=== PATIENT | female | born 1960 | race Caucasian/White ===

== ENCOUNTER 2019-08-01 13:47 | Outpatient (CLI) | payer OTHER, SELFPAY ==
--- NOTE | 2019-08-01 13:56 | XR_ITS ---
WS: [id number] CHEST 2 VIEWS HISTORY: LT CHEST PAIN COMPARISON: 11/01/2018 Lungs: Hyperinflated lungs. No pneumonia or nodules. Normal vasculature. Cardiac size: Normal. Mediastinum/Aorta: Normal mediastinum. Bones: Normal. XR/XR chest 2V* [id number] IMPRESSION: Chronic emphysema. No pneumonia.
== END 2019-08-01 13:48 | disposition home or self-care (01) ==
LOC: RAD 13:53
PROVIDERS: Family Provider Nurse Practitioner Family; PCP Nurse Practitioner Family; Visit Provider Nurse Practitioner Family
DX: R07.9 Chest pain, unspecified (principal); R07.81 Pleurodynia; J43.9 Emphysema, unspecified
CPT/HCPCS: 71046

== ENCOUNTER 2020-10-23 10:06 | Outpatient (CLI) | payer OTHER, SELFPAY ==
--- NOTE | 2020-10-23 10:19 | XR_ITS ---
WS: [id number] Cervical spine, 3 views, 10/23/2020 Clinical Data: NECK PAIN/RA Comparison: None. Findings: No compression fractures are seen. There is degenerative disc narrowing at C5-C6. There is osteoarthritis at C4-C5 and C5-C6. There is no prevertebral soft tissue swelling. The odontoid is unr emarkable. The soft tissues of the neck and the lung apices are normal. XR/XR cervical spine 3V* [id number] Impression: 1. Degenerative disc narrowing at C5-C6. 2. Osteoarthritis at C4-C5 and C5-C6.
== END 2020-10-23 10:07 | disposition home or self-care (01) ==
PROVIDERS: PCP Nurse Practitioner Family; Visit Provider Nurse Practitioner Family
DX: M54.2 Cervicalgia (principal); M47.812 Spondylosis without myelopathy or radiculopathy, cervical region
CPT/HCPCS: 72040

== ENCOUNTER 2020-11-28 16:06 | Outpatient (CLI) | payer OTHER, SELFPAY ==
--- NOTE | 2020-11-28 | CTR_ITS ---
PROCEDURE INFORMATION: Exam: CT Abdomen And Pelvis Without Contrast Exam date and time: 11/28/2020 12:00 AM Age: 60 years old Clinical indication: Abdominal pain; Flank; Other: Bilateral; Prior surgery; Surgery type: Gb, tubal, ovary; Additional info: Hematuria, dysuria, flank pain x 2 days TECHNIQUE: Imaging protocol: Computed tomography of the abdomen and pelvis without contrast. COMPARISON: CR Hip 2-3v RIGHT wwo Pelv* [id number] 01/27/2018 9:09 AM RADIATION DOSE METRICS: Total DLP (mGy-cm): 1506.87 FINDINGS: Liver: Normal. No mass. Gallbladder and bile ducts: Cholecystectomy. Nondilated biliary system. Pancreas: Normal. No ductal dilation. Spleen: Normal. No splenomegaly. Adrenal glands: Normal. No mass. Kidneys and ureters: Mild cortical atrophy of both kidneys. Negative for hydronephrosis. No perinephric inflammation. No calcified renal stones. Left renal sinus calcifications are suspected represent vascular origin calcification. Stomach and bowel: Unremarkable. No obstruction. No mucosal thickening. Appendix: No evidence of appendicitis. Intraperitoneal space: Unremarkable. No free air. No significant fluid collection. Vasculature: Diffuse atherosclerosis. Negative for abdominal aortic aneurysm. Lymph nodes: Unremarkable. No enlarged lymph nodes. Urinary bladder: Bladder is decompressed with no focal stones or obvious mass. Reproductive: Unremarkable as visualized. Bones/joints: Mild superior endplate wedge compression deformity of T11. Unremarkable alignment. Soft tissues: Unremarkable. CT/CT kidney stone [id number] IMPRESSION: 1. Negative for acute abdominopelvic pathology. 2. No cause of hematuria identified. Radiation Dose CTDIVOL = (mGy): DLP = 1506.87 (mGy-cm)
== END 2020-11-28 16:07 | disposition home or self-care (01) ==
LOC: RAD 16:08
PROVIDERS: PCP Nurse Practitioner Family; Visit Provider Nurse Practitioner Family
DX: R31.9 Hematuria, unspecified (principal); R30.0 Dysuria; R10.9 Unspecified abdominal pain
CPT/HCPCS: 74176

== ENCOUNTER → 2020-12-03 13:41 | Outpatient (BNVA) | payer OTHER, SELFPAY | PROVIDERS: PCP Nurse Practitioner Family; Visit Provider Internal Medicine | DX: M05.711 Rheumatoid arthritis with rheumatoid factor of right shoulder without organ or systems involvement (principal); M05.712 Rheumatoid arthritis with rheumatoid factor of left shoulder without organ or systems involvement; M54.2 Cervicalgia; Z11.59 Encounter for screening for other viral diseases; Z11.1 Encounter for screening for respiratory tuberculosis; Z87.891 Personal history of nicotine dependence | CPT/HCPCS: 99203; 99204 ==

== ENCOUNTER 2020-12-03 15:17 | Outpatient (CLI) | payer OTHER, SELFPAY ==
--- NOTE | 2020-12-03 15:35 | XR_ITS ---
WS: [id number] CERVICAL SPINE FLEXION EXTENSION TECHNIQUE: 3 views of the cervical spine: lateral neutral, flexion and extension views. CLINICAL INFORMATION: M05.711 - Rheumatoid arthritis with rheumatoid factor of ... COMPARISON: None. FINDINGS: Straightening of the normal cervical lordosis. Disc space narrowing worse at C5-6 with osteophytic ri dging. Slight anterolisthesis C4-5 in the neutral position measuring 2 mm. This increases slightly on flexion to 2.2 mm and decreases on extension to 1 mm. Normal C1-2 articulation. Posterior elements are normal. No other significant findings. XR/XR cervical spine fl/ex [id number] IMPRESSION: 1. Minimal instability C4-5 described above. 2. Mild spondylitic changes with straightening of the normal cervical lordosis . 3. Disc space narrowing worse at C5-6 with osteophytic ridging.
--- NOTE | 2020-12-03 15:35 | XR_ITS ---
WS: [id number] HIP WITH PELVIS RIGHT TECHNIQUE: 3 views of the right hip with pelvis CLINICAL INFORMATION: M05.711 - Rheumatoid arthritis with rheumatoid factor of ... COMPARISON: None. FINDINGS: Mild degenerative arthritis right hip with mild joint space narrowing. No acute fractures. Normal vis ualized right pubic rami. No erosive changes. XR/XR hip RT 2-3V wo/w pel* [id number] IMPRESSION: Mild degenerative arthritis right hip. No acute fractures. Tonnis classification: grade 1: sclerosis of femoral head and acetabulum or sli ght joint space narrowing or slight lippig at joint margins
--- NOTE | 2020-12-03 15:35 | XR_ITS ---
WS: [id number] THORACIC SPINE TECHNIQUE: 3 views of the thoracic spine CLINICAL INFORMATION: M05.711 - Rheumatoid arthritis with rheumatoid factor of ... COMPARISON: None. FINDINGS: Osteopenia. Mild thoracic curve. Mild thoracic kyphosis. Mild compression deformity in the lower thor acic spine at T11 unchanged since the recent CT November 29, 2019 Mild compression superior endplate. Cholecystectomy clips. Slight anterolisthesis C4-5. Disc space na rrowing worse at C5-6. Partially visualized lungs appear well aerated. Minimal disc space narrowing i n the thoracic spine. XR/XR thoracic spine 3V* [id number] IMPRESSION: 1. Mild thoracic curve. Mild thoracic kyphosis. 2. Mild compression with anterior wedging T11 vertebral body unchanged since r ecent CT. 3. Slight anterolisthesis C4-5. Disc space narrowing worse at C5-6
== END 2020-12-03 15:18 | disposition home or self-care (01) ==
PROVIDERS: PCP Nurse Practitioner Family; Visit Provider Internal Medicine
DX: M05.711 Rheumatoid arthritis with rheumatoid factor of right shoulder without organ or systems involvement (principal); M05.712 Rheumatoid arthritis with rheumatoid factor of left shoulder without organ or systems involvement
CPT/HCPCS: 72040; 72072; 73502

== ENCOUNTER → 2021-03-05 13:56 | Outpatient (BNVA) | payer OTHER, SELFPAY | PROVIDERS: PCP Nurse Practitioner Family; Visit Provider Internal Medicine | DX: M05.711 Rheumatoid arthritis with rheumatoid factor of right shoulder without organ or systems involvement (principal); M05.712 Rheumatoid arthritis with rheumatoid factor of left shoulder without organ or systems involvement; M54.2 Cervicalgia; F17.210 Nicotine dependence, cigarettes, uncomplicated | CPT/HCPCS: 99214 ==

== ENCOUNTER → 2021-03-27 13:40 | Outpatient (BNVA) | payer OTHER, SELFPAY | PROVIDERS: PCP Nurse Practitioner Family; Visit Provider Anesthesiology Pain Medicine | DX: G89.29 Other chronic pain (principal); M79.18 Myalgia, other site; M54.6 Pain in thoracic spine; M54.12 Radiculopathy, cervical region; F17.210 Nicotine dependence, cigarettes, uncomplicated | CPT/HCPCS: 20553; 99204; J1030; J3490 ==

== ENCOUNTER 2021-06-02 14:28 | Outpatient (CLI) | payer OTHER, BC, MEDICAID, SELFPAY ==
[2021-06-02 15:13] LABS: Basophils % 0.6 %; Eosinophils # 0.1 10^3/uL (0.0-0.8); Eosinophils % 1.7 %; Hematocrit 40.1 % (37.0-47.0); Hemoglobin 12.5 g/dL (11.5-15.3); Lymphocytes % 15.1 %; Mean Corpuscular HGB Conc 31.2 g/dL (30.0-36.0); Mean Corpuscular Hemoglobin 33.7 pg (28.0-34.0); Mean Corpuscular Volume 108.1 fl (81-99); Monocytes # 0.5 10^3/uL (0.2-0.9); Monocytes % 6.9 %; Neutrophils # 4.92 10^3/uL (1.8-7.7); Neutrophils % 75.1 %; Nucleated Red Blood Cells % 0 %; Platelet Count 152 10^3/cmm (130-400); Red Blood Count 3.71 10^6/uL (4.1-5.3); Red Cell Distribution Width 13.7 % (12.1-15.1); White Blood Count 6.6 10^3/uL (4.0-10.0)
[2021-06-02 15:17] LABS: Erythrocyte Sedimentation Rate 26 mm/hr (0-15)
[2021-06-02 15:37] LABS: Alanine Aminotransferase 16 U/L (0-33); Albumin Level 3.6 g/dL (3.5-5.2); Alkaline Phosphatase 135 IU/L (35-105); Anion Gap 14.1 (5-19); Aspartate Amino Transferase 18 U/L (0-32); Blood Urea Nitrogen 13 mg/dL (8-23); Calcium 8.3 mg/dL (8.5-10.5); Carbon Dioxide 23 mmol/L (22-29); Chloride 108 mmol/L (98-107); Globulin 3.1 g/dL (1.3-4.6); Glomerular Filtration Rate 50.3 mL/min (90-130); Glucose 109 mg/dL (65-115); Osmolality Calculated 293 mOsm/kg (285-295); Potassium 4.1 mmol/L (3.5-5.1); Sodium 141 mmol/L (136-145); Total Bilirubin 0.2 mg/dL (0.15-1.2); Total Protein 6.7 g/dL (6.6-8.7)
== END 2021-06-02 14:29 | disposition home or self-care (01) ==
LOC: LAB 14:38
PROVIDERS: PCP Nurse Practitioner Family; Visit Provider Internal Medicine
DX: M54.2 Cervicalgia (principal)
CPT/HCPCS: 80053; 85025; 85651; 86140

== ENCOUNTER → 2022-11-23 10:12 | Outpatient (BNVA) | payer OTHER, BC, MEDICAID, SELFPAY | PROVIDERS: PCP Nurse Practitioner Family; Referring Provider Dermatology; Visit Provider Specialist | DX: M19.012 Primary osteoarthritis, left shoulder; M25.812 Other specified joint disorders, left shoulder | CPT/HCPCS: 73030 ==

== ENCOUNTER 2022-12-18 06:00 | Outpatient (RCR) | payer OTHER, BC, MEDICAID, SELFPAY | END 2023-01-16 23:59 | disposition home or self-care (01) | LOC: TPT 06:00 | PROVIDERS: Visit Provider Specialist | DX: M75.02 Adhesive capsulitis of left shoulder (principal) | CPT/HCPCS: 97110; 97140; 97162 ==

== ENCOUNTER 2023-01-17 06:00 | Outpatient (RCR) | payer OTHER, BC, MEDICAID, SELFPAY | END 2023-02-16 23:59 | disposition home or self-care (01) | LOC: TPT 06:00 | PROVIDERS: Visit Provider Specialist | DX: M75.02 Adhesive capsulitis of left shoulder (principal) | CPT/HCPCS: 97110; 97140 ==

== ENCOUNTER 2023-02-13 11:01 | Emergency (ER) | payer OTHER, BC, MEDICAID, SELFPAY ==
[2023-02-13 11:14] VITALS: BP 187/87; PULSE 60; RESP 18; TEMP 36.6; O2SAT 98; BMI 30.7
--- NOTE | 2023-02-13 11:27 | CTR_ITS ---
PROCEDURE INFORMATION: Exam: CT Abdomen And Pelvis With Contrast Exam date and time: 02/13/2023 12:39 PM Age: 62 years old Clinical indication: Abdominal pain; Localized; Left upper quadrant (luq); Prior surgery; Surgery date: 6+ months; Surgery type: Gb; Patient HX: Lifting on something heard a pop pain on left side from mid back around to upper abd; Additional info: Abdominal pain, luq TECHNIQUE: Imaging protocol: Computed tomography of the abdomen and pelvis with contrast. Radiation optimization: All CT scans at this facility use at least one of these dose optimization techniques: automated exposure control; mA and/or kV adjustment per patient size (includes targeted exams where dose is matched to clinical indication); or iterative reconstruction. Contrast material: OMNI 350; Contrast volume: 100 ml; Contrast route: INTRAVENOUS (IV); REPORTING DATA: Count of CT and Cardiac NM exams in prior 12 months: This patient has received 0 known CTs and 0 known cardiac nuclear medicine studies in the 12 months prior to the current study. COMPARISON: CT kidney stone [id number] 11/28/2020 4:31 PM RADIATION DOSE METRICS: Total DLP (mGy-cm): 813.53 FINDINGS: Lungs: Lung bases are clear. Liver: The liver is normal. Gallbladder and bile ducts: The gallbladder is absent. There is ectasia of the common bile duct and central intrahepatic ducts. Pancreas: There is mild atrophy of the pancreas. Spleen: The spleen is unremarkable. Adrenal glands: The adrenal glands are unremarkable. Kidneys and ureters: The kidneys are unremarkable. No hydronephrosis or stones. No ureteral dilation. Stomach and bowel: The stomach is unremarkable. The small bowel is nondilated. The colon is unremarkable. Appendix: The appendix is normal. Intraperitoneal space: There is no free air or significant intraperitoneal free fluid. Vasculature: There is moderate aortic atherosclerotic disease. The portal, splenic and superior mesenteric veins are patent. Lymph nodes: There is no lymphadenopathy in the retroperitoneum, mesentery, pelvis or inguinal regions. Urinary bladder: The urinary bladder is unremarkable. Reproductive: The uterus is unremarkable. There is no adnexal mass or large cyst. Bones/joints: Mild chronic T11 superior endplate compression fracture is stable since 11/28/2020. Lumbar spine is unremarkable. The pelvis and hips are unremarkable. Soft tissues: The abdominal wall is intact. CT/CT abdomen pelvis w con* [id number] IMPRESSION: 1. No acute findings. 2. Incidental findings above.
[2023-02-13 11:45] VITALS: RESP 18
[2023-02-13] MEDS: HYDROmorphone 1 mg/mL INJ 1 mL IVP (11:45)
[2023-02-13] MEDS: ondansetron 2 mg/ML SDV 2 mL 4 MG IVP (11:46)
--- NOTE | 2023-02-13 11:46 | W.ED.ABDPA2 ---
HPI - Abdominal Pain General: Chief Complaint: Abdominal Pain Stated Complaint: left upper abd pain Time Seen by Provider: 02/13/23 11:03 History of Present Illness: This patient is a 62-year-old white female who presents to the emergency department with left upper quadrant abdominal pain. Patient states she was lifting something heavy Wednesday night and felt a sudden pop in the left upper quadrant of the abdomen. She has developed swelling and severe pain in the area. She has had some nausea but no vomiting. She states she has not had a bowel movement since this happened on Wednesday. Urination has been normal. She has not had a fever. Patient has a history of coronary artery disease, hypertension and hypercholesterolemia. Past surgical history includes a bilateral salpingo oophorectomy, cholecystectomy and carpal tunnel surgery. Review of Systems General: Reports: 10 or more systems reviewed and unremarkable except in HPI and below PFSH ED PFSH: Medical History ASHD (arteriosclerotic heart disease) Hyperlipidemia Hypertension Rheumatoid arthritis Surgical History H/O bilateral salpingo-oophorectomy History of carpal tunnel surgery History of cholecystectomy Family History Other CAD (coronary artery disease) Cancer Diabetes Family history of premature coronary artery disease Lung disease Stroke Denies family history of Clotting disorder Dementia Chronic kidney disease (CKD) Suicide Anesthesia complication Bleeding disorder Social History Smoking and tobacco/nicotine status: current some day tobacco/nicotine user cigarettes Alcohol intake: never Substance/Drug Use: never Physical Exam Const: COMMON NORMALS: patient oriented x3 and no limitations GENERAL APPEARANCE: cooperative HENMT: COMMON NORMALS: normocephalic, atraumatic, moist oral mucous membranes and oropharynx normal HEAD & SCALP: normal to inspection, normocephalic and atraumatic Eye: COMMON NORMALS: Equal, round and reactive pupils present, EOMs intact bilaterally and conjunctivae normal GENERAL EYE: appearance normal, both eyes and all related structures CONJUNCTIVA: Yes conjunctivae normal PUPIL: Yes Equal, round and reactive pupils present Neck/C-Spine: COMMON NORMALS: supple and no JVD Chest: COMMONS NORMALS: normal inspection of the chest Resp: COMMON NORMALS: normal respiratory effort and clear to auscultation bilaterally AUSCULTATION: clear to auscultation bilaterally Cardio: COMMON NORMALS: no JVD, regular rate, regular rhythm, No gallops present (Cardio), No murmurs present (Cardio) and No rub (Cardio) RATE: regular rate RHYTHM: regular rhythm GI: COMMON NORMALS: Soft to palpation AUSCULTATION: Yes normoactive bowel sounds PALPATION: Yes Soft to palpation OTHER: Left sided abdominal pain to mild palpation especially in the left upper quadrant. : COMMON NORMALS: Yes no CVA tenderness BLADDER/KIDNEY EXAM: Yes no CVA tenderness Back/Pelvis: COMMON NORMALS: no CVA tenderness and thoracic and lumbar spine normal to inspection Extremity: COMMON NORMALS: normal to inspection Neuro: COMMON NORMALS: patient oriented x3 and CN's II-XII intact bilaterally Psych: COMMON NORMALS: mental status grossly normal, Normal thought process present and cooperative THOUGHT PROCESS: Normal thought process present Skin: COMMON NORMALS: no rashes or lesions noted, turgor normal and no jaundice GENERAL SKIN EXAM: no rashes or lesions noted and turgor normal Course Vital Signs: Vital signs: Vital Signs Temperature 97.9 F 02/13/23 11:14 Pulse Rate 60 02/13/23 11:14 Respiratory Rate 18 02/13/23 11:45 Blood Pressure 187/87 02/13/23 11:14 Pulse Oximetry 98 02/13/23 11:14 Oxygen Delivery Me thod Room Air 02/13/23 11:14 MDM - Abdominal Pain Medical Decision Making Patient was given 1 mg of Dilaudid IV, 4 mg of Zofran IV, 10 mg of Compazine IV. She is feeling significantly better. CBC, CMP and lipase were normal. CT scan of the abdomen and pelvis was read by the radiologist as normal. Patient appears to have an abdominal wall strain. I did place her on ibuprofen, baclofen, hydrocodone and Compazine. I recommended she follow-up with her primary care physician next week for recheck. She was discharged in stable condition. Lab Data 02/13/23 11:43 02/13/23 11:43 Labs/Radiology: Radiology Impressions Abdomen/Pelvis CT 02/13/23 11:27 IMPRESSION: 1. No acute findings. 2. Incidental findings above. Laboratory Results WBC 8.75 10^3/uL (3.29-11.43) 02/13/23 11:43 RBC 4.09 10^6/uL (3.85-5.65) 02/13/23 11:43 Hgb 13.30 g/dL (11.27-16.99) 02/13/23 11:43 Hct 42.5 % (36-47) 02/13/23 11:43 MCV 103.9 fl (85-98) H 02/13/23 11:43 MCH 32.5 pg (27-33) 02/13/23 11:43 MCHC 31.3 g/dL (30-55) 02/13/23 11:43 RDW 14.0 % (12.1-15.1) 02/13/23 11:43 Plt Count 245 10^3/cmm (157-399) 02/13/23 11:43 MPV 10.5 fL (7.4-10.4) H 02/13/23 11:43 Neut % (Auto) 77.7 % 02/13/23 11:43 Lymph % (Auto) 12.7 % 02/13/23 11:43 [place] % (Auto) 6.3 % 02/13/23 11:43 Eos % (Auto) 2.1 % 02/13/23 11:43 Baso % (Auto) 0.7 % 02/13/23 11:43 Neut # (Auto) 6.81 10^3/uL (1.8-7.7) 02/13/23 11:43 Lymph # (Auto) 1.1 10^3/uL (0.8-4.8) 02/13/23 11:43 [place] # (Auto) 0.6 10^3/uL (0.2-0.9) 02/13/23 11:43 Eos # (Auto) 0.2 10^3/uL (0.0-0.8) 02/13/23 11:43 Baso # (Auto) 0.1 10^3/uL (0.0-0.1) 02/13/23 11:43 Nucleated RBC % (auto) 0 % 02/13/23 11:43 Nucleated RBCs # 0.0 /100WBC 02/13/23 11:43 Sodium 143 mmol/L (136-145) 02/13/23 11:43 Potassium 4.3 mmol/L (3.5-5.1) 02/13/23 11:43 Chloride 108 mmol/L (98-107) H 02/13/23 11:43 Carbon Dioxide 24 mmol/L (22-29) 02/13/23 11:43 Anion Gap 15.3 (5-19) 02/13/23 11:43 BUN 15 mg/dL (8-23) 02/13/23 11:43 Creatinine 1.1 mg/dL (0.5-0.9) H 02/13/23 11:43 GFR Calculation 50.2 mL/min (90-130) L 02/13/23 11:43 Glucose 111 mg/dL (65-115) 02/13/23 11:43 Calculated Osmolality 298 mOsm/kg (285-295) H 02/13/23 11:43 Calcium 9.2 mg/dL (8.5-10.5) 02/13/23 11:43 Total Bilirubin 0.4 mg/dL (0.15-1.2) 02/13/23 11:43 AST 17 U/L (0-32) 02/13/23 11:43 ALT 19 U/L (0-33) 02/13/23 11:43 Alkaline Phosphatase 141 U/L (35-105) H 02/13/23 11:43 Total Protein 7.1 g/dL (6.6-8.7) 02/13/23 11:43 Albumin 3.9 g/dL (3.5-5.2) 02/13/23 11:43 Globulin 3.2 g/dL (1.3-4.6) 02/13/23 11:43 Lipase 53 U/L (13-60) 02/13/23 11:43 All radiology interpretation(s) finalized by discharge Discharge Plan Discharge Patient Disposition: Home Clinical Impression: Abdominal wall strain Condition: Stable Prescriptions: New baclofen 5 mg tablet 5 mg PO TID PRN (Reason: muscle spasm) Qty: 30 0RF ibuprofen 800 mg tablet 800 mg PO TID Qty: 30 0RF hydrocodone-acetaminophen 5-325 mg tablet 1 tab PO Q4H Qty: 30 0RF Compazine 10 mg tablet 10 mg PO Q6H Qty: 20 0RF No Action aspirin [Adult Low Dose Aspirin] 81 mg tablet,delayed release (DR/EC) 81 mg PO DAILY calcium carbonate-vitamin D3 [Calcium 600 with Vitamin D3] 600 mg(1,500mg) -500 unit capsule PO hydroxychloroquine [Plaquenil] 200 mg tablet 200 mg PO BID prednisone 5 mg tablet 5 mg PO DAILY folic acid 1 mg tablet 2 mg PO DAILY Qty: 180 1RF methotrexate sodium 2.5 mg tablet 15 mg PO .qweek simvastatin 20 mg tablet 20 mg PO DAILY ergocalciferol (vitamin D2) [Vitamin D2] 1,250 mcg (50,000 unit) capsule 1,250 mcg PO .WEEKLY lisinopril 40 mg tablet 40 mg PO DAILY Qty: 90 3RF carvedilol 12.5 mg tablet 12.5 mg PO DIRECTED Qty: 90 3RF Rx Instructions: Take 2 tabs by mouth every morning and 1 tab by mouth every evening Discharge Orders: Discharge ED (Routine); Ordered 02/13/23 Ordered By: Archie Ruiz Referrals: Arminda Chacon APN [Primary Care Provider] - Patient Instructions: Opioid Safety, Pain Management Activity Restrictions/Additional Instructions: Follow-up with primary care physician next week for recheck. Coding Level of Care Code ED Litigation Attorney Associate for Lukasz Hernandez
[2023-02-13 11:48] LABS: Basophils # 0.1 10^3/uL (0.0-0.1); Basophils % 0.7 %; Eosinophils # 0.2 10^3/uL (0.0-0.8); Eosinophils % 2.1 %; Hematocrit 42.5 % (36-47); Lymphocytes # 1.1 10^3/uL (0.8-4.8); Lymphocytes % 12.7 %; Mean Corpuscular HGB Conc 31.3 g/dL (30-55); Mean Corpuscular Hemoglobin 32.5 pg (27-33); Mean Corpuscular Volume 103.9 fl (85-98); Mean Platelet Volume 10.5 fL (7.4-10.4); Monocytes # 0.6 10^3/uL (0.2-0.9); Monocytes % 6.3 %; Neutrophils # 6.81 10^3/uL (1.8-7.7); Neutrophils % 77.7 %; Nucleated Red Blood Cells % 0 %; Platelet Count 245 10^3/cmm (157-399); Red Blood Count 4.09 10^6/uL (3.85-5.65); White Blood Count 8.75 10^3/uL (3.29-11.43)
[2023-02-13 12:16] LABS: Alanine Aminotransferase 19 U/L (0-33); Albumin Level 3.9 g/dL (3.5-5.2); Alkaline Phosphatase 141 U/L (35-105); Anion Gap 15.3 (5-19); Aspartate Amino Transferase 17 U/L (0-32); Blood Urea Nitrogen 15 mg/dL (8-23); Calcium 9.2 mg/dL (8.5-10.5); Carbon Dioxide 24 mmol/L (22-29); Chloride 108 mmol/L (98-107); Creatinine Clr Calc Pharmacy 57.8912; Globulin 3.2 g/dL (1.3-4.6); Glomerular Filtration Rate 50.2 mL/min (90-130); Glucose 111 mg/dL (65-115); Lipase 53 U/L (13-60); Osmolality Calculated 298 mOsm/kg (285-295); Potassium 4.3 mmol/L (3.5-5.1); Sodium 143 mmol/L (136-145); Total Bilirubin 0.4 mg/dL (0.15-1.2); Total Protein 7.1 g/dL (6.6-8.7)
[2023-02-13] MEDS: iohexol 350 mg/mL 500 mL Btl (per mL) IV (12:49)
[2023-02-13 13:19] VITALS: BP 146/98; PULSE 89; RESP 18; TEMP 36.6; O2SAT 100
[2023-02-13 14:01] VITALS: BP 146/98; PULSE 89; RESP 18; TEMP 36.6; O2SAT 100
== END 2023-02-13 14:01 | disposition home or self-care (01) ==
PROVIDERS: Emergency Provider Emergency Medicine; PCP Nurse Practitioner Family
DX: S39.011A Strain of muscle, fascia and tendon of abdomen, initial encounter (principal); Z79.82 Long term (current) use of aspirin; F17.210 Nicotine dependence, cigarettes, uncomplicated; I10 Essential (primary) hypertension; E78.5 Hyperlipidemia, unspecified; X50.0XXA Overexertion from strenuous movement or load, initial encounter
CPT/HCPCS: 36415; 74177; 80053; 83690; 85025; 96374; 96375; 99285; J1170; J2405; Q9967

== ENCOUNTER 2023-02-17 06:00 | Outpatient (RCR) | payer OTHER, BC, MEDICAID, SELFPAY | END 2023-03-15 07:39 | disposition home or self-care (01) | LOC: TPT 06:00 | PROVIDERS: PCP Nurse Practitioner Family; Visit Provider Specialist | DX: M75.02 Adhesive capsulitis of left shoulder (principal) | CPT/HCPCS: 97110; 97140 ==

== ENCOUNTER 2023-04-06 09:20 | Emergency (ER) | payer OTHER, BC, MEDICAID, SELFPAY ==
[2023-04-06 09:36] VITALS: BP 203/114; PULSE 97; TEMP 36.4; O2SAT 98; BMI 29.5
--- NOTE | 2023-04-06 09:37 | XR_ITS ---
WS: [id number] Thoracic spine, 3 views, 04/06/2023 Clinical Data: fall/trauma Comparison: Thoracic spine, 12/03/2020 Findings: No new compression fractures are seen. The wedge deformity at T11 remains the same. The disc heights are normal. There are minimal osteoarthritic spurs at all levels. There are cholecystectomy clips in the right up per quadrant. Impression: 1. Minimal wedging of T11 vertebral body unchanged. 2. Mild osteoarthritis of the thoracic vertebral bodies.
--- NOTE | 2023-04-06 09:37 | XR_ITS ---
WS: [id number] Lumbar spine, 4 views 04/06/2023 Clinical Data: fall/trauma Comparison: Lumbar spine, 05/16/2018 Findings: No compression fractures or subluxation is seen. No disc space narrowing is seen. The transverse proc esses and SI joints are normal. There is a slight dextroscoliosis of the upper lumbar spine with a slight levoscoliosis of the lower lumbar spine. There are right upper quadrant cholecystectomy clips. Impression: Minimal dextroscoliosis of the upper lumbar spine with a minimal levoscoliosis of the lower lumbar sp ine.
--- NOTE | 2023-04-06 09:38 | ED_ITS ---
HPI - Back Pain/Injury General: Chief Complaint: Back Pain/Injury Stated Complaint: fall, back pain Time Seen by Provider: 04/06/23 09:25 Source: patient Mode of arrival: wheelchair Limitations: no limitations History of Present Illness: Patient is a nice 62-year-old female who presents to the ED today with a complaint of back pain following a fall that occurred 2 days ago. Patient states she was on stairs when she accidentally slipped and fell and landed directly onto the corner of the stair to her back. She complains of lower thoracic/upper lumbar pain. No radicular symptoms. No chest or abdominal pain. MD elicited complaint: back pain and back injury Onset (ago): day(s) Timing: constant Severity: moderate Similar Symptoms Previously: No Location: lumbar spine and thoracic spine Radiation: none Exacerbating factors: movement Relieving factors: none Context: fall Associated symptoms: Reports no associated symptoms; Deny abdominal pain, hematuria or syncope Treatments prior to arrival: cold therapy, heat therapy, NSAIDS and acetaminophen Work related injury: No Review of Systems Eyes: Denies: change in vision, blurry vision, photophobia, eye discharge, floaters or seeing flashes ENMT: Denies: throat pain, odynophagia, ear or mastoid pain, ear discharge, nasal discharge, epistaxis or sinus pain Card: Denies: chest pain, palpitations, lightheadedness, syncope or pre- syncope Resp: Denies: dyspnea or pain on inspiration GI: Denies: abdominal pain : Denies: flank pain or hematuria Musc: Reports: back pain; Denies: neck pain, extremity pain or joint pain Neuro: Denies: headache(s), numbness in extremities, weakness in extremities, sensory changes or dizziness PFSH ED PFSH: Medical History ASHD (arteriosclerotic heart disease) Hypertension Hyperlipidemia Rheumatoid arthritis Surgical History History of cholecystectomy H/O bilateral salpingo-oophorectomy History of carpal tunnel surgery Family History Other CAD (coronary artery disease) Cancer Diabetes Family history of premature coronary artery disease Lung disease Stroke Denies family history of Clotting disorder Dementia Chronic kidney disease (CKD) Suicide Anesthesia complication Bleeding disorder Social History Smoking and tobacco/nicotine status: current some day tobacco/nicotine user cigarettes Alcohol intake: never Substance/Drug Use: never Physical Exam Const: COMMON NORMALS: no acute distress, average body habitus, patient oriented x3, no limitations, healthy appearing, alert and well nourished GENERAL APPEARANCE: cooperative ORIENTATION/CONSCIOUSNESS: Yes awake, Yes oriented to person, Yes oriented to place and Yes oriented to time HENMT: COMMON NORMALS: normocephalic, atraumatic and TM's normal bilaterally HEAD & SCALP: normal to inspection, normocephalic and atraumatic; no Tran's sign, no hematoma and no raccoon eyes FACE & SINUS: normal facial exam TYMPANIC MEMBRANE: TM's normal bilaterally MOUTH: other (no intraoral injuries noted) Eye: COMMON NORMALS: Equal, round and reactive pupils present and EOMs intact bilaterally GENERAL EYE: appearance normal, both eyes and all related structures and normal light reflex PUPIL: Yes Equal, round and reactive pupils present DIRECT OPHTHALMOSCOPY: Yes normal light reflex Neck/C-Spine: COMMON NORMALS: full ROM GENERAL: Yes normal visual inspection CERVICAL SPINE: Yes cervical ROM normal, No pain with cervical ROM, No Cervical spine tenderness, No step off deformity and No Paracervical muscle tenderness Chest: COMMONS NORMALS: normal inspection of the chest and normal palpation of entire chest wall Resp: COMMON NORMALS: normal respiratory effort and clear to auscultation bilaterally AUSCULTATION: clear to auscultation bilaterally Cardio: COMMON NORMALS: regular rate and regular rhythm RATE: regular rate RHYTHM: regular rhythm GI: COMMON NORMALS: Normal to inspection, nondistended, normoactive bowel sounds present, Soft to palpation, non-tender, No hepatosplenomegaly present and no masses INSPECTION: Yes normal to inspection and No abdominal wall ecchymosis AUSCULTATION: Yes normoactive bowel sounds PALPATION: Yes Soft to palpation and Yes No hepatosplenomegaly present Back/Pelvis: COMMON NORMALS: thoracic and lumbar spine normal to inspection and straight leg raise negative bilaterally THORACIC SPINE/UPPER BACK: Yes normal to inspection, Yes ROM limited, Yes thoracic spinal tenderness (midline lower T spine), No paraspinal muscle tenderness and No paraspinal muscle spasm LUMBAR SPINE/LOWER BACK: Yes normal to inspection, Yes ROM limited, Yes lumbar spinal tenderness (upper L spine), No paraspinal muscle tenderness, No paraspinal muscle spasm and Yes straight leg raise negative bilaterally SACRUM: no tenderness COCCYX: no tenderness Extremity: COMMON NORMALS: normal to inspection and full ROM GENERAL: Yes normal exam except as noted Neuro: EFREM COMA SCALE: document GCS findings [place] coma scale eye opening: Spontaneous Efrem coma scale verbal response: Orientated [place] coma scale motor response: Obey commands [place] coma scale total score: 15 COMMON NORMALS: patient oriented x3, CN's II-XII intact bilaterally, moves all extremities, no focal motor deficits, no sensory deficits noted and gait normal SENSORIUM/ORIENTATION: Yes alert, Yes oriented to person, Yes oriented to place and Yes oriented to time SPEECH: speech normal GAIT: Yes Normal gait present Skin: COMMON NORMALS: no rashes or lesions noted GENERAL SKIN EXAM: no rashes or lesions noted TRAUMA: no lacerations or abrasions Course Vital Signs: Vital signs: Vital Signs Temperature 97.5 F L 04/06/23 09:36 Pulse Rate 97 04/06/23 09:36 Blood Pressure 153/76 04/06/23 11:14 Pulse Oximetry 98 04/06/23 09:36 Oxygen Delivery Me thod Room Air 04/06/23 09:36 MDM - Back Pain/Injury Medical Decision Making Patient's plain films are negative for acute fracture. She feels much better after pain medications given here. She was noted to be quite hypertensive upon arrival. She states she did not take her home morning blood pressure medications this these were provided. At time of discharge blood pressure is 150s/70s which she states is close to her baseline. She will be provided a prescription for pain medication. Other conservative therapies discussed. I would like her to follow-up with primary care by the end of the week if symptoms do not seem to be improving. Return to ED precautions given. All radiology interpretation(s) finalized by discharge Discharge Plan Discharge Patient Disposition: Home Clinical Impression: Back contusion Qualifiers: Encounter type: initial encounter Laterality: unspecified laterality Qualified Code(s): S20.229A - Contusion of unspecified back wall of thorax, initial encounter Condition: Stable Prescriptions: New hydrocodone-acetaminophen 5-325 mg tablet 1 tab PO Q6H PRN (Reason: pain) Qty: 14 0RF No Action aspirin [Adult Low Dose Aspirin] 81 mg tablet,delayed release (DR/EC) 81 mg PO QAM calcium carbonate-vitamin D3 [Calcium 600 with Vitamin D3] 600 mg(1,500mg) - 500 unit capsule 1 cap PO DAILY hydroxychloroquine [Plaquenil] 200 mg tablet 200 mg PO DAILY prednisone 5 mg tablet 7.5 mg PO DAILY folic acid 1 mg tablet 2 mg PO DAILY Qty: 180 1RF methotrexate sodium 2.5 mg tablet 12.5 mg PO Q7D Rx Instructions: on tues (5 tabs=12.5mg) simvastatin 20 mg tablet 20 mg PO BEDTIME ergocalciferol (vitamin D2) [Vitamin D2] 1,250 mcg (50,000 unit) capsule 1,250 mcg PO .WEEKLY Rx Instructions: on sat lisinopril 40 mg tablet 40 mg PO DAILY Qty: 90 3RF carvedilol 6.25 mg tablet 6.25 mg PO BID gabapentin 300 mg capsule 300 mg PO TID Discharge Orders: Discharge ED (Routine); Ordered 04/06/23 Ordered By: Kristina Manrique Referrals: Oswaldo,ODIN Hilliard [Primary Care Provider] - Patient Instructions: Contusion in Adults (ED), Opioid Safety, Pain Management Activity Restrictions/Additional Instructions: As we discussed your x-rays were negative for acute fracture. I have E scripted you some pain medications you can take for severe pain. If pain does not improve over the next few days please follow-up with your primary care provider. Coding Level of Care Code ED Behavior Management Specialist for Lukasz Hernandez
[2023-04-06] MEDS: morphine 4 mg/mL SDV 1 mL IVP (10:46)
[2023-04-06] MEDS: carvedilol 12.5 mg Tablet PO (10:50)
[2023-04-06 11:14] VITALS: BP 153/76
[2023-04-06 11:33] VITALS: BP 153/76
== END 2023-04-06 11:57 | disposition home or self-care (01) ==
PROVIDERS: Emergency Provider Physician Assistant; PCP Nurse Practitioner Family
DX: S30.0XXA Contusion of lower back and pelvis, initial encounter (principal); W10.8XXA Fall (on) (from) other stairs and steps, initial encounter; I10 Essential (primary) hypertension; E78.5 Hyperlipidemia, unspecified; F17.210 Nicotine dependence, cigarettes, uncomplicated; Z79.82 Long term (current) use of aspirin
CPT/HCPCS: 72072; 72100; 96374; 99284; J2270

== ENCOUNTER 2023-06-16 07:43 | Day surgery (SDC) | payer OTHER, BC, MEDICAID, SELFPAY ==
[2023-06-16 08:11] VITALS: BP 130/87; PULSE 86; RESP 18; TEMP 36.6; O2SAT 95
[2023-06-16] MEDS: sodium chloride 0.9% 1,000 ML 30 ML IV (08:13)
--- NOTE | 2023-06-16 08:46 | ANES.PREANE2 ---
Pre-Anesthetic Assessment Height/Weight: Height 1.68 m Weight 81.193 kg Temp Pulse Resp BP Pulse Ox O2 Del Method 97.8 F 86 18 130/87 95 Room Air 06/16/23 08:11 06/16/23 08:11 06/16/23 08:11 06/16/23 08:11 06/16/23 08:11 06/16/23 08:11 Preop Diagnosis: epigastric pain screening colonoscopy Operation Date: 06/16/23 09:00 Proposed Procedures p 26722 egd [id number] colon G0105 screen colon H risk z12.11, K21.9(Not Applicable) - Ben Alvarez DO s Colonoscopy(Not Applicable) - Ben Alvarez DO Familial anesthetic complications: none Was Beta Arabella taken within 24 hours: N/A Was Clonidine taken within 24 hours: N/A Last intake: Intake Last Liquid Date 06/15/23 Last Liquid Time 20:30 Last Solid Date 06/14/23 Last Solid Time 17:00 Social Tobacco .5 used to smoke 1.5 packs per day pack(s) per day smoked 40 years pack years Exam alert, oriented x 3, clear to auscultation bilaterally and regular rate & rhythm Airway Submandibular: within normal limits Cervical ROM: within normal limits Mallampati: Class II Dentition: partials Comments: Comments: upper History/ROS No significant history except as noted Pulmonary None reported CV/HEM Coronary Artery Disease ( 1stent) and Hypertension None reported Hepatic None reported GI Gastroesophageal Reflux Disease Metabolic None reported Musc/skel Lower Back Pain and Rheumatoid Arthritis Neuropsych None reported Anesthetic Plan ASA status: 3 Anesthesia: Anesthesia Evaluation Risk of > 500 ml blood loss (7ml/kg in children): No Medications/Allergies Home Medications Medication Instructions Recorded Confirmed Last Taken Type aspirin 81 mg tablet,delayed 81 mg PO QAM 08/15/19 06/14/23 06/14/23 History release (Adult Low Dose Aspirin) calcium carbonate 600 mg-vitamin 1 cap PO DAILY 08/15/19 06/14/23 06/14/23 History D3 12.5 mcg (500 unit) capsule (Calcium 600 with Vitamin D3) hydroxychloroquine 200 mg tablet 200 mg PO DAILY 08/15/19 06/14/23 06/14/23 History (Plaquenil) simvastatin 20 mg tablet 20 mg PO BEDTIME 11/11/20 06/14/23 06/14/23 History folic acid 1 mg tablet 2 mg (2 x 1 mg) PO DAILY #180 tabs 12/03/20 06/14/23 06/14/23 Rx methotrexate sodium 2.5 mg tablet 12.5 mg PO Q7D 03/05/21 06/14/23 06/07/23 History ergocalciferol (vitamin D2) 1,250 1,250 mcg PO .WEEKLY 03/27/21 06/14/23 06/12/23 History mcg (50,000 unit) capsule (Vitamin D2) prednisone 5 mg tablet 7.5 mg PO DAILY 11/13/21 06/14/23 06/14/23 History lisinopril 40 mg tablet 40 mg PO DAILY #90 tabs 11/09/22 06/14/23 06/14/23 Rx carvedilol 6.25 mg tablet 6.25 mg PO BID 04/06/23 06/14/23 06/16/23 History gabapentin 300 mg capsule 300 mg PO TID 04/06/23 06/14/23 06/14/23 History pantoprazole 40 mg tablet,delayed 40 mg PO BID 06/14/23 06/14/23 06/14/23 History release Allergies Allergy/AdvReac Type Severity Reaction Status Date / Time Penicillins Allergy Unknown unknown Verified 06/16/23 07:47 Current Medications Generic Name Dose Route Start Last Admin Trade Name Freq PRN Reason Stop Dose Admin Sodium Chloride 1,000 mls @ 30 mls/hr 06/16/23 07:45 06/16/23 08:13 Sodium Chloride 0.9% IV 06/17/23 07:44 30 mls/hr .Q24H MELONIE Administration PFSH Anesthesia Medical History ASHD (arteriosclerotic heart disease) Hypertension Hyperlipidemia Rheumatoid arthritis Surgical History History of cholecystectomy H/O bilateral salpingo-oophorectomy History of carpal tunnel surgery Family History Other CAD (coronary artery disease) Cancer Diabetes Family history of premature coronary artery disease Lung disease Stroke Denies family history of Clotting disorder Dementia Chronic kidney disease (CKD) Suicide Anesthesia complication Bleeding disorder Social History Smoking and tobacco/nicotine status: current some day tobacco/nicotine user cigarettes Alcohol intake: never Substance/Drug Use: never Data Anesthesia Cardiac Studies: No Data to Display
--- NOTE | 2023-06-16 09:16 | W.PM.OPSUD ---
Surgery/Procedure H&P Update DATE OF PROCEDURE: June 16, 2023 DATE H&P PERFORMED: 05/24/23 H&P UPDATE INFORMATION: I have reviewed H&P completed within last 30 days, I have examined patient prior to procedure and No changes to prior documentation PREOP DIAGNOSIS: epigastric pain screening colonoscopy PLANNED PROCEDURE: Operation Date: 06/16/23 09:00 Proposed Procedures p 57700 egd [id number] colon G0105 screen colon H risk z12.11, K21.9(Not Applicable) - DO cesar Dennis Colonoscopy(Not Applicable) - Ben Alvarez DO
[2023-06-16 09:38] VITALS: BP 110/75; PULSE 83; RESP 18; TEMP 36.3; O2SAT 97
[2023-06-16 09:48] VITALS: BP 118/87; PULSE 80; RESP 18; O2SAT 95
--- NOTE | 2023-06-16 15:24 | ANE.PACU2 ---
Inpatient post-anesthesia follow up: Airway intact: Yes Vital signs: Temperature 97.4 F Pulse Rate 80 Respiratory Rate 18 Blood Pressure 118/87 Pulse Oximetry 95 Oxygen Delivery Me thod Room Air Oxygen Flow Rate Fraction of Inspir ed Oxygen Hydration adequate: Yes Nausea and vomiting: No Pain level: 2 Mental status: Baseline
== END 2023-06-16 10:09 | disposition home or self-care (01) ==
PROVIDERS: PCP Nurse Practitioner Family; Visit Provider Surgery
PROC: 0DJ08ZZ Inspection of Upper Intestinal Tract, Via Natural or Artificial Opening Endoscopic (ICD-10-PCS; CPT 43235; principal; 2023-06-16 09:00)
PROC: 0DJD8ZZ Inspection of Lower Intestinal Tract, Via Natural or Artificial Opening Endoscopic (ICD-10-PCS; CPT 45378; 2023-06-16 09:00)
DX: Z12.11 Encounter for screening for malignant neoplasm of colon (principal); K21.9 Gastro-esophageal reflux disease without esophagitis; K64.8 Other hemorrhoids; K22.2 Esophageal obstruction; I25.10 Atherosclerotic heart disease of native coronary artery without angina pectoris; Z95.5 Presence of coronary angioplasty implant and graft; I10 Essential (primary) hypertension; M06.9 Rheumatoid arthritis, unspecified; Z79.82 Long term (current) use of aspirin; E78.5 Hyperlipidemia, unspecified; F17.210 Nicotine dependence, cigarettes, uncomplicated
CPT/HCPCS: 43239; 45378; 88305; 88342; J2704; J7030

== ENCOUNTER → 2023-11-04 16:09 | Outpatient (BNVA) | payer OTHER, SELFPAY | PROVIDERS: PCP Nurse Practitioner Family; Visit Provider Internal Medicine Cardiovascular Disease | DX: R07.9 Chest pain, unspecified (principal) | CPT/HCPCS: 93005 ==

== ENCOUNTER 2024-01-12 07:15 | Outpatient (CLI) | payer OTHER, SELFPAY ==
[2024-01-12 07:21] VITALS: BMI 29.5
--- NOTE | 2024-01-12 07:21 | NMCV_ITS ---
NM rambo perf SPECT r/s* [id number] Brisa Ruiz Age: 63 Gender: F : 1960 Exam Date: 01/12/2024 08:13 Ordering Phys: Alan Lynn MD ([email or web address]) Technologist: NAZIA Shearer Exam Location: [facility] Indications: co,sob STRESS TEST Please see separate stress test report in [facility] for full findings IMAGE PROTOCOL Rest/Stress 1 Lexiscan Day Radiopharmaceutical Dose (mCi) Administration Site Administered by Rest: Tc-99m 10.9 IV NAZIA Shearer Sestamibi Stress:Tc-99m 32.9 IV NAZIA Wen Sestamibi Rest: 12-Jan-2024 60 Discovery 630 Stress: 12-Jan-2024 30 Discovery 630 0.4mg Lexiscan. Images obtained in supine and prone position. SPECT RESULTS Technical Quality: Good Raw Data Analysis: Normal Image Corrections: No attenuation or motion correction applied Summed Stress Score: 2 Summed Rest Score: 0 Summed Difference Score: 2 PERFUSION FINDINGS Small area of slightly decreased tracer uptake was noted in the mid anterolateral and apical lateral region, in the supine position. Complete reversibility at rest. With the prone imaging, there was uniform tracer uptake with no significant Perfusion abnormalities FUNCTIONAL RESULTS (calculated via Gated SPECT) Stress Image LV EF (%): 74 Stress EDV (mL):68 TID: 0.85 Stress ESV (mL):18 FUNCTIONAL FINDINGS: Segmental wall motion analysis revealing no gross wall motion abnormalities IMPRESSIONS 1. MVA revealing a small area of reversible defect in the anterolateral and apical lateral region, suggesting ischemia in the distribution of the circumflex artery. However because of the inconsistency, most likely this is artifactual 2. Normal LV ejection fraction of 74%. 3. LV wall motion analysis revealing no gross wall motion abnormalities. 4. Normal LV volume No similar previous studies are available for comparison Dr Alan Lynn MD FACC (Electronically Signed) Final Date: 13 January 2024 21:43 S
--- NOTE | 2024-01-12 07:21 | ECG_ITS ---
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 Interpretive Statements 'Lexiscan/sestamibi/sestamibi stress test PROCEDURE: At the baseline, the EKG revealed sinus bradycardia with normal ST Ts.. The baseline heart was 53 bpm with a blood pressue of 129/91 mm of Hg Lexiscan was infused over a period of 20 seconds. A total of 0.4 milligrams of Lexiscan was infused. The stress phase was continued for a total of 5 minutes. Heart rate at the end of the stress phase was 64 bpm with a blood pressure 168/82 mm of Hg. The EKG at the peak infusion revealed no significant changes. Sestamibi was injected 20 seconds after the Lexiscan infusion. Lung unchanged pre/post procedure; Intra procedure shortness of breath; Symptoms resoled by discharge Heart rate at the end of the recovery phase was 63 bpm with a blood pressure of 164/77 mm of Hg. CONCLUSION: 1. No significant EKG changes with the LexiScan infusion 2. No LexiScan induced chest pain or cardiac arrhythmia 3. Normal blood pressure and heart rate response 4. Sestamibi/sestamibi perfusion scan pending; see separate report. Electronically Signed On 01-16-2024 21:00:23 CDT by Alan Lynn M.D. [email or web address]
[2024-01-12] MEDS: regadenoson 0.4 Mg/5 ml Syringe IVP (08:53)
[2024-01-12 09:02] VITALS: BP 164/77; PULSE 63
== END 2024-01-12 07:16 | disposition home or self-care (01) ==
PROVIDERS: PCP Nurse Practitioner Family; Visit Provider Internal Medicine Cardiovascular Disease
DX: Z98.61 Coronary angioplasty status (principal); R06.02 Shortness of breath; R94.39 Abnormal result of other cardiovascular function study
CPT/HCPCS: 36415; 78452; 93017; 96374; A9500; J2785

== ENCOUNTER 2024-02-14 07:18 | Outpatient (CLI) | payer OTHER, SELFPAY ==
--- NOTE | 2024-02-14 | XACV_ITS ---
Exam Room: 2 Ht: 168 cm Wt: 83 kg BSA: 1.99 m2 Gender: Female : 1960 Any Known Allergies: Penicillins Exam Priority: Routine Procedure(s): Procedure Description: Diagnostic procedure Procedure Description: Left Heart Catheterization Procedure Description: Left ventriculography Procedure Description: Coronary Angiography Diagnostic Cath Status: Elective Diagnostic Findings * The left main is a medium caliber vessel with no significant stenotic lesions. * The left descending artery is a medium caliber vessel which appears to bifurcate proximally to give a equally caliber diagonal vessel and LAD proper. The diagonal artery was found to have 20 to 30% irregular narrowing in the proximal segment. The LAD was found to be tapering off to his the LV apex. Minimal intimal irregularities are noted in the midsegment. No significant stenotic lesions were noted. * The left circumflex artery is a small to medium caliber nondominant vessel with no significant stenotic lesions. The ostium of the circumflex artery was found to have around 40% narrowing proximally. Mild diffuse intimal irregularities are noted in the obtuse marginal branches. * The right coronary artery is a medium to large caliber dominant vessel which was found to have a patent stented segment at the midportion. Mild diffuse disease was noted at the proximal and the distal segments of the artery. The PDA and the PLV branches were found to have no significant stenotic lesions. Conclusions 1. 63-year-old white female with history of coronary disease and previous PCI, presented with increasing episodes of shortness of breath, chest tightness and neck pain. The symptoms are gradually getting worse. She had a Myocardial perfusion imaging which revealed a small area of reversible defect in the apical lateral and mid anterolateral regions. Because of ongoing worsening of symptoms, in order to further evaluate the coronary status, a cardiac catheterization was recommended. Patient underwent left heart catheterization with left and right coronary angiogram and LV angiogram today. The findings are as follows. 2. 1. Mild diffuse coronary artery disease #2 patent stented segment of the right coronary artery. #3 normal ejection fraction 60%. #4 LVEDP of 10 mmHg. Diagnostic RX Recommendation: medical therapy and/or counseling LV EDP: 10 mmHg Ventriculography Ejection Fraction: 60.0 % Left Ventriculography Findings: * The LV gram was performed in the THOMPSON position. The LV cavity was of normal size. LV ejection fraction was around 60%. No filling defects were noted. No significant mitral valve prolapse or mitral regurgitation. Pressures Phase:Rest AO : 152 / 77 ( 105 ) @ 5:58:00 PM 127 / 51 ( 82 ) @ 6:09:00 PM 140 / 63 ( 92 ) @ 6:09:00 PM LV : 142 / 4 / 10 @ 6:08:00 PM 132 / -10 / 9 @ 6:09:00 PM 134 / -9 / 9 @ 6:09:00 PM Valves Phase:DefaultPhase AV : 7.0 @ 5:18:18 PM AV Mean Gradient: 14.0 @ 5:18:18 PM Clinical Evaluation EBL: 5mL-10mL Procedural Details Procedure Consent Obtained. Pre-Procedure Time Out. Identified patient by full name and date of as verbalized by the patient/guarantor. Does the consent match the physician's order: Yes. Accurate & Complete Informed Consent: Yes. Inpatient/Outpatient History & Physical on Chart: Yes. If H&P is completed, is and addenduem needed: No. Visualize and Verify Site with Patient/Guarantor: N/A. Relevant Radiology Images available: Yes. The risks, benefits, and alternatives of sedation and/or procedure were discussed by physician. The patient agrees to continue. Procedure started. [facility] Clinical Fraility Score: 3: Managing Well. Risk Control Field Representative Indications: Suspected CAD/CP/Abnormal stress test. Chest Pain Symptom Assessment: Typical Angina Symptoms. Cardiovascular Instability: No. Correct patient, site and procedure confirmed by cath team. PERRLA. Strong, equal hand missionary coordinator bilaterally. Lungs clear x 5 lobes. IV Site on Arrival: 20 gauge in the right anticubital. IV Fluids: 0.9% NaCl at KVO. 0 mL infused prior to laboratory animal facility supervisor. Pre Procedural Pulses: right dorsalis pedis was 2+. Pre Procedural Pulses: bilateral posterior tibial was 1+. Pre Procedural Pulses: bilateral radial was 2+. Oxygen started at 2liters/min via nasal canula. popliteal was prepped with chloroprep then draped in the usual sterile fashion. Physician notified. Baseline sample Acquired. HR: 56 BPM. Patient's family in the laboratory animal facility supervisor waiting room. Dr. Lynn will update at the completion of the procedure. Equipment: 6F - Femoral. Cardiac Cath Pack. ACIST Manifold Kit Model BT 2000. Heparinized Saline (2 units/mL), 1000 mL bag. Kit, Micropuncture. Baseline sample Acquired. HR: 58 BPM. Physician arrived. Pre Procedural Pulses: left dorsalis pedis was 1+. Physician scrubbed in. Immediate Pre-Procedure Time Out. Correct Patient: Yes; Correct Procedure: Yes; Correct Site: Yes; Correct Patient Position: Yes; Correct Supplies: Yes; Dried Flammable Prep: Yes; Blood Products Available: N/A. Lidocaine 1% infiltrated to the right groin. right groin was prepped with chloroprep then draped in the usual sterile fashion. Arterial access obtained with micropuncture set. A 5 trinidadian JL4 catheter in over the standard J wire. Multiple views taken of left coronary artery. Catheter removed over the standard J wire. A 5 trinidadian JR4 catheter in over the standard J wire. Multiple views taken of right coronary artery. Catheter removed over the standard J wire. A 5 trinidadian Angled Pig catheter in over the standard J wire. EDP Sample taken: LV 142/4,10; HR: 57 BPM; SpO2: 100%. LV gram performed in THOMPSON @ 10 mL/second for a total of 30 mL. EDP Sample taken: LV 132/-11,9; HR: 56 BPM; SpO2: 100%. Pullback taken: LV 134/-10,9; AO 127/51(82); Mean: 14mmHg, Peak to Peak: 7mmHg, SEP: 19sec/min; HR: 56 BPM; SpO2: 100%. Catheter removed over the standard wire. Dr. Lynn scrubbed out. A Suture was successful obtaining hemostatsis at the Right Femoral artery insertion site. Arterial sheath flushed and connected to tranducer and pressure bag with heparinized saline. Post Procedure: Pulses reassessed and unchanged. PERRLA. Strong, equal hand missionary coordinator bilaterally. No VTE prophylaxis required. Medication's Wasted: Lidocaine 1% = 10 mL. Medication's Wasted: Heparin = 4500 units. Medication's Wasted: Other = Fentanyl 25 mcg. Total IV fluids: 35 mL. Post-op diagnosis: Non obstructive CAD. Complications: none. Estimated blood loss: 5mL-10mL. Responsiveness - Normal response to verbal stimuli; alert and oriented, PERRLA. Airway - Unaffected, no intervention required; spontaneous ventilation. Circulation: W/N/L, pulses unchanged. Nausea/Vomiting: No. Medication's Wasted: Other = Benadryl 25 mg. Procedure completed. Patient transferred by bed to 1st floor. Vital chart was stopped. Access Site Site: Right Femoral artery Sheath Size: 6 Fr Hemostasis Method: Suture Hemostasis Success: Successful Procedure Medications Start: 4:33 PM Stop: 4:33 PM Medication: Benadryl Amount: 25 mg Route: I.V. Start: 4:44 PM Stop: 4:44 PM Medication: Versed Amount: 1 mg Route: I.V. Start: 4:45 PM Stop: 4:45 PM Medication: Fentanyl Amount: 50 mcg Route: I.V. Start: 4:52 PM Stop: 4:52 PM Medication: Versed Amount: 1 mg Route: I.V. Start: 5:05 PM Stop: 5:05 PM Medication: Fentanyl Amount: 25 mcg Route: I.V. Start: 5:01 PM Stop: 5:01 PM Medication: Heparin Amount: 1500 units Route: I.V. I, the attending physician, have reviewed and verified all procedure medications. Yes, all medications given per verbal order History/Risk Factors Hypertension: Yes Dyslipidemia: Yes Peripheral Arterial Disease (PAD): No Myocardial Infarction (IL): No Obesity: Yes Renal Disease: No Tobacco Use: Current/Recent(w/in 1 year) Prior Interventions PCI: Yes CABG: No Valve Surgery: No Date of PCI: 08/29/2013 Report Signatures Finalized by Dr Alan Lynn MD [facility] on 03/19/2024 05:40 PM
[2024-02-14 08:05] LABS: Basophils % 0.3 %; Eosinophils # 0.1 10^3/uL (0.0-0.8); Eosinophils % 2.2 %; Hematocrit 41.5 % (36-47); Lymphocytes # 1.6 10^3/uL (0.8-4.8); Lymphocytes % 25.4 %; Mean Corpuscular Hemoglobin 32.2 pg (27-33); Mean Corpuscular Volume 100.5 fl (85-98); Mean Platelet Volume 10.2 fL (7.4-10.4); Monocytes # 0.6 10^3/uL (0.2-0.9); Monocytes % 9.4 %; Neutrophils % 62.4 %; Nucleated Red Blood Cells % 0 %; Platelet Count 239 10^3/cmm (157-399); Red Blood Count 4.13 10^6/uL (3.85-5.65); Red Cell Distribution Width 13.2 % (12.1-15.1); White Blood Count 6.41 10^3/uL (3.29-11.43)
--- NOTE | 2024-02-14 08:25 | W.PM.OPSUD ---
Surgery/Procedure H&P Update DATE OF PROCEDURE: February 14, 2024 DATE H&P PERFORMED: 02/04/24 H&P UPDATE INFORMATION: I have reviewed H&P completed within last 30 days, I have examined patient prior to procedure and No changes to prior documentation PREOP DIAGNOSIS: Atherosclerotic heart disease PRIMARY INDICATION FOR PROCEDURE: Dyspnea on exertion, chest discomfort, abnormal perfusion scan, previous PCI PLANNED PROCEDURE: Operation Date: 02/14/24 08:30 Proposed Procedures p Cardiac Catheterization(Left) - Alan Lynn MD PATIENT REASSESSED PRIOR TO SEDATION, WITH NO CHANGE NOTED: Yes PHYSICAL EXAM: alert, oriented x 3, clear to auscultation bilaterally and regular rate & rhythm AIRWAY EVAL/ANESTHESIA PLAN: normal airway, ASA III, Monitored Anesthesia, Local Anesthesia, Risks, benefits & alternatives of sedation and/or procedure discussed and Patient agrees to continue as planned
[2024-02-14 08:26] VITALS: BP 168/101; PULSE 51; RESP 16; TEMP 36.8; O2SAT 98
[2024-02-14] MEDS: diphenhydrAMINE 50 mg Capsule PO (08:27)
[2024-02-14 08:37] LABS: Anion Gap 14.6 (5-19); Blood Urea Nitrogen 14 mg/dL (8-23); Calcium 8.7 mg/dL (8.5-10.5); Carbon Dioxide 23 mmol/L (22-29); Chloride 105 mmol/L (98-107); Glomerular Filtration Rate 72.2 mL/min (90-130); Glucose 91 mg/dL (65-115); Osmolality Calculated 288 mOsm/kg (285-295); Potassium 3.6 mmol/L (3.5-5.1); Sodium 139 mmol/L (136-145)
[2024-02-14 12:10] VITALS: BP 169/88; PULSE 55; RESP 16
--- NOTE | 2024-02-14 12:10 | PC.NURSE ---
Patient transfers to CSU from semiconductor lab technician at 1200. She will be having her procedure around 1630 today due to delays in semiconductor lab technician this morning. photographic laboratory supervisor has already prep her for the procedure.
--- NOTE | 2024-02-14 16:31 | PC.NURSE ---
Patient left CSU for labor and delivery registered nurse at 1620.
--- NOTE | 2024-02-14 17:41 | PC.NURSE ---
Patient returned to CSU from electroplating laborer with a right femoral sheath.
[2024-02-14 17:42] VITALS: BP 151/61; PULSE 52; RESP 18; O2SAT 97
[2024-02-14] MEDS: pantoprazole DR 40 mg Tablet PO (18:22)
[2024-02-14] MEDS: carvedilol 6.25 mg Tablet PO (18:22)
[2024-02-14] MEDS: gabapentin 300 mg Capsule PO (20:07)
[2024-02-14] MEDS: atorvastatin 40 mg Tablet PO (20:07)
[2024-02-14 20:18] LABS: Partial Thromboplastin Time 27.9 SECONDS (23.9-36.7)
[2024-02-14 21:20] VITALS: BP 154/80; PULSE 51; RESP 16; TEMP 36.8; O2SAT 99
[2024-02-14 22:00] VITALS: PULSE 54
[2024-02-15 00:53] VITALS: BP 124/73; PULSE 56; RESP 16; TEMP 36.9; O2SAT 93
[2024-02-15 03:55] VITALS: PULSE 54
[2024-02-15 04:35] VITALS: BP 134/81; PULSE 56; RESP 20; TEMP 37; O2SAT 93
[2024-02-15] MEDS: aspirin 81 mg EC Tablet PO (05:11)
[2024-02-15 06:00] VITALS: PULSE 63
--- NOTE | 2024-02-15 06:54 | PC.NURSE ---
Shealth in right groin pulled at 2145 on 02/13, no hematoma noted at site, dressing is dry and in place Patient was up at 0400 02/14 site was still clean and dry.
[2024-02-15 08:08] VITALS: BP 154/96; PULSE 62; RESP 18; TEMP 37; O2SAT 93
[2024-02-15] MEDS: calcium carb-vit d 600mg/400unit 1 Tablet 1 EACH PO (08:56)
[2024-02-15] MEDS: predniSONE 5 mg Tablet 7.5 MG PO (08:56)
[2024-02-15] MEDS: hydroxychloroquine 200 mg Tablet PO (08:56)
[2024-02-15] MEDS: gabapentin 300 mg Capsule PO (08:56)
[2024-02-15] MEDS: pantoprazole DR 40 mg Tablet PO (08:56)
[2024-02-15] MEDS: folic acid 1 mg Tablet 2 MG PO (08:56)
[2024-02-15] MEDS: lisinopril 20 mg Tablet 40 MG PO (08:57)
[2024-02-15] MEDS: carvedilol 6.25 mg Tablet PO (08:57)
[2024-02-15] MEDS: amlodipine 5 mg Tablet 2.5 MG PO (08:57)
[2024-02-15 09:19] VITALS: BP 138/76; PULSE 72; RESP 18; O2SAT 94
--- NOTE | 2024-02-15 09:23 | PC.NURSE ---
Patient is discharged with her daughter via a wheelchair and private car. Discharge instructions are gone over with the patient and daughter, they state understanding.
--- NOTE | 2024-02-15 11:33 | P.DS_ITS ---
Discharge Providers Date of Admission: 04/15/2024 Date of Discharge: February 15, 2024 Attending Provider at Admission: Alan Lynn MD Attending Provider at Discharge: Alan Lynn MD Consults: None Primary Care Provider: Arminda Chacon APN Reason for Visit Reason for Visit: I25.118 Brief History: The patient is a 63-year-old female presenting with hx dyspnea on exertion. She has hx of RCA stent in 2013. She reported increased shortness of breath when walking short distances, such as from her car to the clinic. The sensation had progressively worsened since her last visit in October. The patient stated that her previous stress test did not show any clear issues with myocardial perfusion, even under prone imaging, but a heart catheterization has been advised to further evaluate coronary artery disease. She was concerned about waiting for potential myocardial infarction before addressing the issue. Hospital Course Hospital Course To rule out myocardial ischemia from coronary artery disease, a left heart cardiac catheterization was performed. Results showed patent RCA stent with minimal coronary artery disease present. She tolerated procedure well w/o complications Physical Exam Narrative: General: No apparent distress, healthy appearing, well nourished Muskuloskeletal: Full ROM Lymphatic: no lymphedema noted Respiratory: Normal respiratory effort, clear to auscultation bilaterally throughout all lung guevara, no use of accessory muscles Cardio: No JVD, regular rate, regular rhythm, S1 S2 normal, no murmurs, peripheral pulses 2+ throughout Extremities: Full ROM, normal, normal capillary refill, no cyanosis or edema Neuro: Alert and oriented x4, no focal motor deficits Psych: Affect normal, denies suicidal ideation, mental status grossly normal Skin: cardiac catheterization puncuture site w/o s/s of hematoma Discharge Data Studies Completed and Pending Pending at discharge Category Date Time Status ENT NURSE request for service Routine Exams 02/14/24 00:00 Taken Laboratory Results WBC 6.41 10^3/uL (3.29-11.43) 02/14/24 07:55 RBC 4.13 10^6/uL (3.85-5.65) 02/14/24 07:55 Hgb 13.30 g/dL (11.27-16.99) 02/14/24 07:55 Hct 41.5 % (36-47) 02/14/24 07:55 MCV 100.5 fl (85-98) H 02/14/24 07:55 MCH 32.2 pg (27-33) 02/14/24 07:55 MCHC 32.0 g/dL (30-55) 02/14/24 07:55 RDW 13.2 % (12.1-15.1) 02/14/24 07:55 Plt Count 239 10^3/cmm (157-399) 02/14/24 07:55 MPV 10.2 fL (7.4-10.4) 02/14/24 07:55 Neut % (Auto) 62.4 % 02/14/24 07:55 Lymph % (Auto) 25.4 % 02/14/24 07:55 [place] % (Auto) 9.4 % 02/14/24 07:55 Eos % (Auto) 2.2 % 02/14/24 07:55 Baso % (Auto) 0.3 % 02/14/24 07:55 Neut # (Auto) 4.00 10^3/uL (1.8-7.7) 02/14/24 07:55 Lymph # (Auto) 1.6 10^3/uL (0.8-4.8) 02/14/24 07:55 [place] # (Auto) 0.6 10^3/uL (0.2-0.9) 02/14/24 07:55 Eos # (Auto) 0.1 10^3/uL (0.0-0.8) 02/14/24 07:55 Baso # (Auto) 0.0 10^3/uL (0.0-0.1) 02/14/24 07:55 Nucleated RBC % (auto) 0 % 02/14/24 07:55 Nucleated RBCs # 0.0 /100WBC 02/14/24 07:55 APTT 27.9 SECONDS (23.9-36.7) 02/14/24 19:10 Sodium 139 mmol/L (136-145) 02/14/24 07:55 Potassium 3.6 mmol/L (3.5-5.1) 02/14/24 07:55 Chloride 105 mmol/L (98-107) 02/14/24 07:55 Carbon Dioxide 23 mmol/L (22-29) 02/14/24 07:55 Anion Gap 14.6 (5-19) 02/14/24 07:55 BUN 14 mg/dL (8-23) 02/14/24 07:55 Creatinine 0.8 mg/dL (0.5-0.9) 02/14/24 07:55 GFR Calculation 72.2 mL/min (90-130) L 02/14/24 07:55 Glucose 91 mg/dL (65-115) 02/14/24 07:55 Calculated Osmolality 288 mOsm/kg (285-295) 02/14/24 07:55 Calcium 8.7 mg/dL (8.5-10.5) 02/14/24 07:55 Procedures Performed Left heart cardiac catheterization Vitals Last Vital Signs Temp 98.6 F 02/15/24 08:08 Pulse 72 02/15/24 09:19 Resp 18 02/15/24 09:19 BP 138/76 02/15/24 09:19 Pulse Ox 94 02/15/24 09:19 O2 Del Method Room Air 02/15/24 09:19 Discharge Plan Discharge Patient Disposition: Home Prescriptions: New isosorbide mononitrate 30 mg tablet extended release 24 hr 30 mg PO DAILY Qty: 30 5RF Continued aspirin [Adult Low Dose Aspirin] 81 mg tablet,delayed release (DR/EC) 81 mg PO QAM calcium carbonate-vitamin D3 [Calcium 600 with Vitamin D3] 600 mg(1,500mg) - 500 unit capsule 1 cap PO DAILY hydroxychloroquine [Plaquenil] 200 mg tablet 200 mg PO DAILY prednisone 5 mg tablet 7.5 mg PO DAILY folic acid 1 mg tablet 2 mg PO DAILY Qty: 180 1RF methotrexate sodium 2.5 mg tablet 12.5 mg PO Q7D Rx Instructions: on (5 tabs=12.5mg) simvastatin 20 mg tablet 20 mg PO BEDTIME ergocalciferol (vitamin D2) [Vitamin D2] 1,250 mcg (50,000 unit) capsule 1,250 mcg PO .WEEKLY Rx Instructions: on sat nitroglycerin 0.4 mg tablet, sublingual 0.4 mg sublingual Q5M PRN (Reason: chest pain) 30 Days Qty: 30 3RF Rx Instructions: until response; do not exceed 3 doses per episode amlodipine 2.5 mg tablet 2.5 mg PO DAILY Qty: 90 1RF lisinopril 40 mg tablet 40 mg PO DAILY Qty: 90 3RF carvedilol 6.25 mg tablet 6.25 mg PO BID gabapentin 300 mg capsule 300 mg PO TID pantoprazole 40 mg tablet,delayed release (DR/EC) 40 mg PO BID Discharge Orders: Discharge Order (Routine); Ordered 02/15/24 Ordered By: Alan Lynn Referrals: Otilia Martinez FNP [Nurse Practitioner] - 02/28/24 1:30 pm Chacon,ODIN Hilliard [Primary Care Provider] - 02/21/24 2:40 pm Diet: Advance as tolerated Activity: Limit activity as instructed Patient Instructions: Isosorbide Mononitrate (By mouth) (Imdur, Imdur ER, Ismo), Dyspnea (DC), Heart Catheterization (DC), Post Angiogram Home Care Instructions Activity Restrictions/Additional Instructions: Avoid any weight lifting or climbing stairs for the next 3 days May take isosorbide mononitrate 30 mg p.o. daily in addition to the current medications Appointment of the [facility] in 1 to 2 weeks to see the nurse practitioner Appointment with me in the office as scheduled Stand Alone Forms: Work/School Release Discharge Date/Time: 02/15/24 09:48 Discharge Attestations Time Spent in Discharge Care*: less than 30 min Coding Level of Care Code Acute Code for Chg Fwd Chest Pain Patient has had chest pain and shortness of breath that has progressively gotten worse. This could be related to coronary artery spasm. Will initiate isosorbide extended release 30 mg daily follow-up in clinic to evaluate therapy. Most Recent Cardiac Tests: Chest X-Ray 08/01/19 Chronic Fatigue and Pain This may be related to patient having a few episodes of bradycardia. Will reevaluate in the outpatient setting and may adjust carvedilol dosage. Shortness of Breath F/U (pulm) Lung sounds clear throughout no evidence of CHF at this time. Continue follow- up with evaluation and management of noncardiac reasons for shortness of breath. Pulmonary Results: 2 No Data to Display
--- NOTE | 2024-02-15 12:24 | P.PN_ITS ---
Subjective 2 Subjective: This patient underwent a cardiac catheterization yesterday. She had a the angiogram through the right femoral artery. She was found to have patent stented segment of the right coronary artery. Mild diffuse disease was noted in the other vessels. She was admitted to the CPR you for arterial sheath removal and observation. Patient had an uneventful postprocedure course. No hematoma bleeding from the right groin. Vitals/I&O/Wt Last Vital Signs Temp 98.6 F 02/15/24 08:08 Pulse 72 02/15/24 09:19 Resp 18 02/15/24 09:19 BP 138/76 02/15/24 09:19 Pulse Ox 94 02/15/24 09:19 O2 Del Method Room Air 02/15/24 09:19 02/14/24 02/15/24 02/15/24 22:59 06:59 14:59 Intake Total 240 / 300 120 / 120 Balance 240 / 300 120 / 120 Weight last 48 hrs Weight 200 lb 2.876 oz Weight 184 lb 4.903 oz Physical Exam 2 Narrative: GENERAL: The patient is alert and oriented times three. Not in any acute distress. HEENT: No significant pallor, icterus or lymphadenopathy.Oral cavity: There are no mucous membrane lesions. NECK: Trachea appears to be central. No masses noted. No JVD or thyromegaly appreciated. RESPIRATORY: Chest is symmetrical. No intercostals muscle retraction or any accessory muscle activation. There is no chest wall tenderness. Breath sounds are heard bilaterally. No rales or rhonchi heard. No evidence of any consolidation. BREASTS: Deferred. HEART: The heart sounds are normal. No S3 or S4. No significant murmurs. No pericardial rub ABDOMEN: No vessel pulsations or distention. No tenderness. No organomegaly appreciated. Bowel sounds are normally heard. : Deferred. RECTAL: Deferred. LYMPHATIC: No lymphadenopathy noted in the neck. EXTREMITIES: No edema or cyanosis. No clubbing. MUSCULOSKELETAL: No acute joint deformities or swelling SKIN: There are no significant rashes or ecchymosis NEUROPSYCHIATRIC: The patient is alert and oriented x3. Appears to be in a good mood. No tremors or rigidity noted. Data 02/14/24 07:55 02/14/24 07:55 Other Labs: Laboratory Last Values WBC 6.41 10^3/uL (3.29-11.43) 02/14/24 07:55 RBC 4.13 10^6/uL (3.85-5.65) 02/14/24 07:55 Hgb 13.30 g/dL (11.27-16.99) 02/14/24 07:55 Hct 41.5 % (36-47) 02/14/24 07:55 MCV 100.5 fl (85-98) H 02/14/24 07:55 MCH 32.2 pg (27-33) 02/14/24 07:55 MCHC 32.0 g/dL (30-55) 02/14/24 07:55 RDW 13.2 % (12.1-15.1) 02/14/24 07:55 Plt Count 239 10^3/cmm (157-399) 02/14/24 07:55 MPV 10.2 fL (7.4-10.4) 02/14/24 07:55 Neut % (Auto) 62.4 % 02/14/24 07:55 Lymph % (Auto) 25.4 % 02/14/24 07:55 [place] % (Auto) 9.4 % 02/14/24 07:55 Eos % (Auto) 2.2 % 02/14/24 07:55 Baso % (Auto) 0.3 % 02/14/24 07:55 Neut # (Auto) 4.00 10^3/uL (1.8-7.7) 02/14/24 07:55 Lymph # (Auto) 1.6 10^3/uL (0.8-4.8) 02/14/24 07:55 [place] # (Auto) 0.6 10^3/uL (0.2-0.9) 02/14/24 07:55 Eos # (Auto) 0.1 10^3/uL (0.0-0.8) 02/14/24 07:55 Baso # (Auto) 0.0 10^3/uL (0.0-0.1) 02/14/24 07:55 Nucleated RBC % (auto) 0 % 02/14/24 07:55 Nucleated RBCs # 0.0 /100WBC 02/14/24 07:55 APTT 27.9 SECONDS (23.9-36.7) 02/14/24 19:10 Sodium 139 mmol/L (136-145) 02/14/24 07:55 Potassium 3.6 mmol/L (3.5-5.1) 02/14/24 07:55 Chloride 105 mmol/L (98-107) 02/14/24 07:55 Carbon Dioxide 23 mmol/L (22-29) 02/14/24 07:55 Anion Gap 14.6 (5-19) 02/14/24 07:55 BUN 14 mg/dL (8-23) 02/14/24 07:55 Creatinine 0.8 mg/dL (0.5-0.9) 02/14/24 07:55 GFR Calculation 72.2 mL/min (90-130) L 02/14/24 07:55 Glucose 91 mg/dL (65-115) 02/14/24 07:55 Calculated Osmolality 288 mOsm/kg (285-295) 02/14/24 07:55 Calcium 8.7 mg/dL (8.5-10.5) 02/14/24 07:55 A&P Assessment and plan (1) Atherosclerotic heart disease of [place] coronary artery with other forms of angina pectoris: Patient did not have any significant obstructive coronary disease. Considering the possibility of small vessel disease/coronary spasm, it was decided to start her on isosorbide mononitrate 30 mg p.o. daily. Other medications were continued as it is.. The angiogram findings were discussed with the patient in detail. Patient understood this well (2) Hyperlipidemia: May continue on the current management Qualifiers: Hyperlipidemia type: mixed hyperlipidemia Qualified Code(s): E78.2 - Mixed hyperlipidemia (3) Hypertension: Will continue on the current treatment. Qualifiers: Hypertension type: essential hypertension Qualified Code(s): I10 - Essential (primary) hypertension (4) Rheumatoid arthritis: May continue on the current management. Qualifiers: Rheumatoid arthritis location: shoulder Rheumatoid factor presence: w ith rheumatoid factor Laterality: bilateral Qualified Code(s): M05.711 - Rheumatoid arthritis with rheumatoid factor of right shoulder without organ or systems involvement; M05.712 - Rheumatoid arthritis with rheumatoid factor of left shoulder without organ or systems involvement Attestations 2 Medical Necessity Statement*: Since the patient is remaining stable with no new symptoms, she is being discharged home today. Will be seen back in the clinic in 1 to 2 weeks by the nurse practitioner. I will see her in the office i as scheduled. Coding Level of Care Code 55057 Diagnoses Atherosclerotic heart disease of [place] coronary artery with other forms of angina pectoris I25.118 Mixed hyperlipidemia E78.2 Hyperlipidemia type: mixed hyperlipidemia Essential hypertension I10 Hypertension type: essential hypertension Rheumatoid arthritis involving both shoulders with positive rheumatoid factor M05.711; M05.712 Rheumatoid arthritis location: shoulder Rheumatoid factor presence: with rheumatoid factor Laterality: bilateral
== END 2024-02-15 09:48 | disposition home or self-care (01) ==
LOC: CCL 07:19 → CSU 11:52
PROVIDERS: Internal Medicine Cardiovascular Disease; PCP Nurse Practitioner Family; Visit Provider Internal Medicine Cardiovascular Disease
DX: I25.118 Atherosclerotic heart disease of native coronary artery with other forms of angina pectoris (principal); E78.2 Mixed hyperlipidemia; I10 Essential (primary) hypertension; M05.711 Rheumatoid arthritis with rheumatoid factor of right shoulder without organ or systems involvement; M05.712 Rheumatoid arthritis with rheumatoid factor of left shoulder without organ or systems involvement; E66.9 Obesity, unspecified; Z68.32 Body mass index [BMI] 32.0-32.9, adult
CPT/HCPCS: 36415; 80048; 85025; 85730; 93458; 96374; 96375; 96376; 99152; 99153; C1769; C1887; C1894; J1200; J1644; J2250; J3010; J3490; J7050; J7512; Q0163; Q9967

== ENCOUNTER → 2024-02-28 13:41 | Outpatient (BNVA) | payer OTHER, SELFPAY | PROVIDERS: PCP Nurse Practitioner Family; Visit Provider Nurse Practitioner Family | DX: I25.10 Atherosclerotic heart disease of native coronary artery without angina pectoris (principal) | CPT/HCPCS: 36415; 80048 ==

== ENCOUNTER 2024-05-22 11:35 | Outpatient (CLI) | payer MEDICARE, OTHER, SELFPAY ==
--- NOTE | 2024-05-22 11:46 | XRR_ITS ---
PROCEDURE INFORMATION: Exam: XR Left Hip Exam date and time: 05/22/2024 11:53 AM Age: 64 years old Clinical indication: Hip pain; Left hip; Additional info: Hip pain, left TECHNIQUE: Imaging protocol: Radiologic exam of the left hip. Views: 2 or 3 views hip with pelvis when performed. COMPARISON: CT abdomen pelvis w con* [id number] 02/13/2023 12:39 PM FINDINGS: Bones/joints: No acute fracture. No dislocation. Normal bone mineralization. Small osteophytes the right and left sacroiliac joints and the left hip. Soft tissues: No soft tissue swelling or soft tissue emphysema. No radiopaque foreign body. XR/XR hip LT 2-3V wo/w pel* [id number] IMPRESSION: 1. No acute fracture of the left hip. CT scan or MRI would be recommended if clinical concern for fracture persists. 2. Mild degenerative change at the left hip. 3. Mild degenerative changes at the right and left sacroiliac joints.
== END 2024-05-22 11:36 | disposition home or self-care (01) ==
LOC: RAD 11:45
PROVIDERS: PCP Nurse Practitioner Family; Visit Provider Nurse Practitioner Family
DX: M25.752 Osteophyte, left hip (principal); M25.70 Osteophyte, unspecified joint
CPT/HCPCS: 73502

== ENCOUNTER → 2024-10-30 09:47 | Outpatient (BNVA) | payer MEDICARE, SELFPAY | PROVIDERS: PCP Nurse Practitioner Family; Visit Provider Nurse Practitioner Family | DX: I25.10 Atherosclerotic heart disease of native coronary artery without angina pectoris (principal); I10 Essential (primary) hypertension; E78.2 Mixed hyperlipidemia; R06.02 Shortness of breath; Z79.82 Long term (current) use of aspirin; Z95.5 Presence of coronary angioplasty implant and graft; F17.210 Nicotine dependence, cigarettes, uncomplicated | CPT/HCPCS: 99213 ==